=== PATIENT | male | born 1985 | race Caucasian/White ===

== ENCOUNTER 2019-10-03 23:39 | Emergency (ER) | payer BC ==
[2019-10-03 23:48] VITALS: BP 134/87; PULSE 50; RESP 18; TEMP 98.2
[2019-10-03] MEDS ORDERED: DIPH,PERTUS(ACELL)TETVAC-LF 0.5 ML VIAL IM ONE (23:55)
[2019-10-03] MEDS ORDERED: LIDOCAINE 1% INJ 10MG/ML (20 ML MDV) SQ ONE (23:55)
--- NOTE | 2019-10-04 00:13 | CT ---
EXAMINATION TYPE: CT brain wo con DATE OF EXAM: 10/04/2019 COMPARISON: None HISTORY: pain CT DLP: 1098.4 mGycm Automated exposure control for dose reduction was used. Ventricles have normal size. There is no mass effect nor midline shift. There is no sign of intracran ial hemorrhage. The calvarium is intact. There is no evidence of cerebral edema. IMPRESSION: Negative unenhanced head CT scan. Mild right frontal scalp soft tissue swelling noted.
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
== END 2019-10-04 01:06 | disposition home or self-care (01) ==
LOC: EC 23:39
DX: S01.81XA Laceration without foreign body of other part of head, initial encounter (principal); R11.10 Vomiting, unspecified; Z87.891 Personal history of nicotine dependence; Z23 Encounter for immunization; W39.XXXA Discharge of firework, initial encounter
CPT/HCPCS: 70450; 90715; 12011; 90471; 99283; J2001